=== PATIENT | female | born 1995 | race Caucasian/White ===

== ENCOUNTER 2017-12-26 14:58 | Emergency (ER) | payer OTHER ==
[2015-02-05 12:58] VITALS: Ht 180.3 cm; Wt 63.5 kg
[~2017-12-26] VITALS: Ht 180.3 cm; Wt 63.5 kg
[~2017-12-26 14:58] MED LIST: ACET-1718 PO; ACET-3017 PO; ACET500T68 PO; ALBU8.5H12 IH; ALBUDR INH; BCP; BIRTH CONTROL; CIPR-344; CYCL10TA29 PO; FERR-103 PO; HYDR-317 PO; HYDR-385 PO; HYDR-4309 PO; IBU600 PO; IBUP600T22 PO; IBUP800T37 PO; LOR5 PO; LOR5/325 PO; MULT-1335 PO; NAPR500T75 PO; NAPR550T20 PO; NORE-74 PO; NORG-1; ONDA-2 PO; PHEN97.511 PO; SULF-198 PO; TRAM-420 PO; [UNRECOGNIZED DRUG - CODE] PO; [UNRECOGNIZED DRUG - REMARK]; omnicef
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
[2017-12-26] MEDS ORDERED: ACETAMINOPHEN 500 MG TAB PO ONE (15:25)
--- NOTE | 2017-12-26 15:58 | RADIOLOGY IMAGING REPORT ---
FACILITY: PATIENT NAME: Shalini Gandara : 1995 MR: [id number] V: [id number] EXAM DATE: ORDERING PHYSICIAN: KYMBERLY FRANZ TECHNOLOGIST: Location: [facility] Patient: Shalini Gandara : 1995 Visit/Account:[id number] Date of Sevice: 12/26/2017 Exam type: 2 views right shoulder History: shoulder pain, limited ROM Comparison: 09/11/2017. Findings: There is no acute fracture or dislocation of the right shoulder. Y-view is slightly overrotated. AC joint aligns appropriately. Acromion down slopes slightly. Right lung apex is unremarkable. IMPRESSION: 1. No acute fracture or dislocation of the right shoulder. Report Dictated By: Terrell Mcqueen MD at 12/26/2017 3:53 PM Report E-Signed By: Terrell Mcqueen MD at 12/26/2017 3:54 PM WSN:[email or web address]
[2017-12-26 16:30] VITALS: BP 96/57
== END 2017-12-26 16:28 | disposition home or self-care (01) ==
LOC: ER 15:15
DX: M25.511 Pain in right shoulder (principal)
CPT/HCPCS: 99283

== ENCOUNTER 2018-03-05 15:19 | Emergency (ER) | payer SELFPAY ==
[2015-02-05 12:58] VITALS: Wt 65.8 kg
[2018-03-05 15:30] VITALS: BP 121/88
--- NOTE | 2018-03-05 15:45 | ER Report ---
History and Physical Time Seen By MD: 15:45 Hx. of Stated Complaint: patient states she dislocated her knee; pain is 8.5 HPI/ROS CHIEF COMPLAINT: Knee trauma HISTORY OF PRESENT ILLNESS: 22-year-old female with a history of knee problems presents today after she hit her right knee against a wall at work at about 10: 15 this morning. She states it felt like her knee was dislocated and then self reduced. She denies any weakness or numbness distal to her knee. She has pain with weightbearing. Allergies: Coded Allergies: lactose (Verified Allergy, Intermediate, MIGRAINES, 03/05/18) Uncoded Allergies: HAYFEVER (Allergy, Mild, SINUS CONGESTION, 09/01/17) Home Meds Reported Medications Multivitamin With Minerals (MULTIPLE VITAMIN) 1 Each Tablet, 1 EACH PO DAILY, TAB 09/01/17 Tramadol Hcl (TRAMADOL HCL) 50 Mg Tablet, 50 MG PO Q8H Y for PAIN, TAB 09/01/17 Discontinued Reported Medications Acetaminophen (TYLENOL EXTRA STRENGTH) 500 Mg Tablet, 1000 MG PO DAILY Y for PAIN/HEADACHE, TAB 09/01/17 Hx Smoking: No Smoking Status: Never Smoker Exposure to Second Hand Smoke?: No Hx Substance Use Disorder: No Hx Alcohol Use: Yes Constitutional Vital Sign - Last 24 Hours 03/05/18 15:30 Temp 98.3 Pulse 81 Resp 19 B/P (MAP) 121/88 Pulse Ox 97 O2 Delivery Room Air Physical Exam General appearance: [Alert no distress.] Right knee: There is no significant swelling. There is no effusion. There is no obvious deformity of the knee. There is moderate tenderness to the patella and medial joint line. The joint is stable with no comparable ligamentous laxity to the knee. There is no tenderness proximal or distal to the knee. Neurologic exam: The patient has normal sensation distal to the injury. Vascular exam: Normal pulses and capillary refill in the foot DIFFERENTIAL DIAGNOSIS: After history and physical exam differential diagnosis was considered for knee injury including sprain, fracture, meniscus injury and soft tissue injury. Medical Decision Making EKG/Imaging Imaging X-ray: location right knee was obtained. I viewed the images myself on the PACS system. My interpretation of the images is: Normal. The radiologist interpretation had no clinically significant variation from this interpretation. ED Course/Re-evaluation ED Course Physical exam is consistent with contusion or MCL strain. X-ray shows no acute osseous injury. She was placed in knee immobilizer and given crutches. She was referred to orthopedic surgery for further evaluation. Decision to Disposition Date: Mar 05, 2018 Decision to Disposition Time: 16:07 Depart Departure Latest Vital Signs Vital Signs Date Time Temp Pulse Resp B/P (MAP) Pulse Ox O2 Delivery O2 Flow Rate FiO2 03/05/18 15:30 98.3 81 19 121/88 97 Room Air Impression: Primary Impression: Knee MCL sprain Additional Impression: Contusion Condition: Improved Disposition: HOME OR SELF-CARE Referrals: LISA CARTAGENA MD Patient Instructions: Crutch Instructions (ED), Knee Immobilizer (ED), Knee Sprain (ED) Problem Qualifiers Primary Impression: Knee MCL sprain Encounter type: initial encounter Laterality: right Qualified Codes: S83.411A - Sprain of medial collateral ligament of right knee, initial encounter Additional Impression: Contusion Encounter type: initial encounter Contusion area: knee Laterality: right Qualified Codes: S80.01XA - Contusion of right knee, initial encounter LOGAN RIVERS MD Mar 05, 2018 15:45
--- NOTE | 2018-03-05 16:14 | RADIOLOGY IMAGING REPORT ---
FACILITY: [facility] [place] PATIENT NAME: Shalini Gandara : 1995 MR: [id number] V: [id number] EXAM DATE: ORDERING PHYSICIAN: LOGAN RIVERS TECHNOLOGIST: Location: [facility] [place] Patient: Shalini Gandara : 1995 Visit/Account:[id number] Date of Sevice: 03/05/2018 EXAMINATION: Right knee 3 views HISTORY: Knee trauma. Pain. COMPARISON: 01/14/2014. FINDINGS: Bones of the right knee demonstrate normal alignment. No evidence of fracture or dislocation. Joint s paces are preserved. Soft tissues are radiographically unremarkable. No significant knee joint effusi on is evident. IMPRESSION: Negative right knee. Report Dictated By: Deshawn Hayes MD at 03/05/2018 4:09 PM Report E-Signed By: Deshawn Hayes MD at 03/05/2018 4:10 PM WSN:[id number]
== END 2018-03-05 16:27 | disposition home or self-care (01) ==
LOC: ER 15:36
DX: S83.411A Sprain of medial collateral ligament of right knee, initial encounter (principal); S80.01XA Contusion of right knee, initial encounter
CPT/HCPCS: 73562; 99282; L1830

== ENCOUNTER 2018-04-12 21:21 | Emergency (ER) | payer SELFPAY ==
[2015-02-05 12:58] VITALS: Wt 65.8 kg
[2018-04-12] MEDS ORDERED: ONDANSETRON 4 MG/2 ML VIAL IVP ONE (22:00)
[2018-04-12] MEDS ORDERED: MORPHINE 4 MG/ML SDV IVP ONE ×2 (22:00→22:50)
[2018-04-12] MEDS ORDERED: NS(*) 0.9% 1000 ML BAG 1,000 ML IV ONE (22:00)
--- NOTE | 2018-04-12 22:01 | ER Report ---
History and Physical Time Seen By MD: 21:51 Hx. of Stated Complaint: pt c/o abdominal pain all day, with n/v/d HPI/ROS CHIEF COMPLAINT: Abdominal pain HISTORY OF PRESENT ILLNESS: This is a 22 year old female. She has been having abdominal pain since she awoke this morning. She was feeling okay yesterday. She says that the pain worsens when she eats anything. She has associated nausea and vomiting. The worst pain is high up on the right abdomen. She has no thermometer, but has felt hot. She has had some loose bowels. Denies dysuria. Has has endometriosis and just finished her menses about a week ago and did not have much pain with that. She has had two laparoscopies in the past due to her endometriosis. REVIEW OF SYSTEMS: Constitutional: As above. Cardiovascular: No chest pain. Respiratory: No shortness of breath. Gastrointestinal: As above. Genitourinary: As above. Musculoskeletal: No back pain. No extremity pain. Skin: No rashes. Allergies: Coded Allergies: lactose (Verified Allergy, Intermediate, MIGRAINES, 04/12/18) Uncoded Allergies: HAYFEVER (Allergy, Mild, SINUS CONGESTION, 09/01/17) Home Meds Active Scripts Ondansetron (ZOFRAN ODT) 4 Mg Tab.rapdis, 4 MG PO Q6H Y for NAUSEA/VOMITING, # 20 TAB.JAY 0 Refills Prov:CAIO BOLAND MD 04/12/18 Hydrocodone Bit/Acetaminophen (HYDROCODON-ACETAMINOPHEN 5-325) 1 Each Tablet, 1 EACH PO Q4H Y for PAIN, #8 TAB 0 Refills Prov:CAIO BOLAND MD 04/12/18 Reported Medications Multivitamin With Minerals (MULTIPLE VITAMIN) 1 Each Tablet, 1 EACH PO DAILY, TAB 09/01/17 Discontinued Reported Medications Tramadol Hcl (TRAMADOL HCL) 50 Mg Tablet, 50 MG PO Q8H Y for PAIN, TAB 09/01/17 Reviewed Nurses Notes: Yes Hx Smoking: No Smoking Status: Never Smoker Exposure to Second Hand Smoke?: No Hx Substance Use Disorder: No Hx Alcohol Use: Yes (couple weekly) Constitutional Vital Sign - Last 24 Hours 04/12/18 04/12/18 04/12/18 04/12/18 21:25 21:30 21:45 22:00 Temp 98.3 Pulse 92 88 80 75 Resp 16 B/P (MAP) 111/75 113/77 (89) 92/64 (73) Pulse Ox 97 99 99 99 O2 Delivery Room Air 04/12/18 04/12/18 04/12/18 04/12/18 22:15 22:35 22:45 22:45 Pulse 76 74 74 B/P (MAP) 103/79 (87) Pulse Ox 94 96 96 04/12/18 04/12/18 04/12/18 04/12/18 23:00 23:00 23:30 23:30 B/P (MAP) 110/81 (91) 110/81 (91) 107/74 (85) 107/74 (85) 04/12/18 23:45 Pulse 78 Pulse Ox 91 Physical Exam General Appearance: The patient is alert. No acute distress. Eyes: Pupils are equal, round. No pallor, injection or icterus. ENT: Mucous membranes are moist. Normal oral mucosa. Posterior oropharynx is normal. Neck: Supple and non tender. Respiratory: Lungs are clear to auscultation. Cardiovascular: Regular rate and rhythm. No murmurs, gallops or rubs. Gastrointestinal: Abdomen is soft, tender on the right side, seems worse on the right upper quadrant with positive Leigh's sign. Nondistended. No costovertebral angle tenderness. No rebound or guarding. Normal active bowel sounds. Neurological: Alert and oriented x3. Skin: No rashes. Musculoskeletal: No tenderness in palpation of the thoracic and lumbar spine. DIFFERENTIAL DIAGNOSIS: After history and physical exam, differential diagnosis was considered for abdominal pain including but not limited to appendicitis, cholecystitis and urinary tract infection. Medical Decision Making Data Points Result Diagram: 04/12/18213404/12/182134 Laboratory Hematology Test 04/12/18 21:25 04/12/18 21:35 Urine Color Yellow Urine Clarity Clear Urine pH 5.0 pH (4.8-9.5) Urine Specific [place] 1.024 Urine Protein Negative mg/dL (NEGATIVE) Urine Glucose (UA) Negative mg/dL (NEGATIVE) Urine Ketones Negative mg/dL (NEGATIVE) Urine Blood Moderate (NEGATIVE) Urine Nitrite Negative (NEGATIVE) Urine Bilirubin Negative (NEGATIVE) Urine Urobilinogen Negative mg/dL (0.2-1.9) Urine Leukocyte Esterase Negative (NEGATIVE) Urine RBC 3 /HPF (0-2/HPF) Urine WBC 2 /HPF (0-5/HPF) Urine Squamous Epithelial Cells Many /LPF (</=FEW) Urine Bacteria Few /HPF (NONE-FEW) Urine Hyaline Casts Few /LPF (NONE-FEW) Urine Mucus Few /HPF (NONE-FEW) Red Blood Count 4.58 M/uL (4.17-5.56) Mean Corpuscular Volume 86.5 fL (80.0-96.0) Mean Corpuscular Hemoglobin 29.0 pg (26.0-33.0) Mean Corpuscular Hemoglobin Concent 33.6 g/dL (32.0-36.0) Red Cell Distribution Width 14.6 % (11.5-14.5) Mean Platelet Volume 8.2 fL (7.2-11.1) Neutrophils (%) (Auto) 69.1 % (39.4-72.5) Lymphocytes (%) (Auto) 24.1 % (17.6-49.6) Monocytes (%) (Auto) 5.9 % (4.1-12.4) Eosinophils (%) (Auto) 0.5 % (0.4-6.7) Basophils (%) (Auto) 0.4 % (0.3-1.4) Nucleated RBC Relative Count (auto) 0.0 /100WBC Neutrophils # (Auto) 8.0 K/uL (2.0-7.4) Lymphocytes # (Auto) 2.8 K/uL (1.3-3.6) Monocytes # (Auto) 0.7 K/uL (0.3-1.0) Eosinophils # (Auto) 0.1 K/uL (0.0-0.5) Basophils # (Auto) 0.0 K/uL (0.0-0.1) Nucleated RBC Absolute Count (auto) 0.00 K/uL Sodium Level 141 mmol/L (137-145) Potassium Level 3.5 mmol/L (3.5-5.0) Chloride Level 102 mmol/L (98-107) Carbon Dioxide Level 25 mmol/L (22-31) Blood Urea Nitrogen 18 mg/dl (7-18) Creatinine 0.80 mg/dl (0.52-1.04) Glomerular Filtration Rate Calc > 60.0 Random Glucose 88 mg/dl (75-110) Calcium Level 9.4 mg/dl (8.4-10.2) Total Bilirubin 0.6 mg/dl (0.2-1.3) Aspartate Amino Transf (AST/SGOT) 29 U/L (0-35) Alanine Aminotransferase (ALT/SGPT) 29 U/L (0-56) Alkaline Phosphatase 75 U/L (0-126) C-Reactive Protein 0.7 mg/dl (<1.0) Total Protein 7.5 gm/dl (6.3-8.2) Albumin 4.3 g/dl (3.5-5.0) Amylase Level 109 U/L (0-110) Lipase 53 U/L (23-300) Human Chorionic Gonadotropin, Qual Negative (NEGATIVE) Chemistry Test 04/12/18 21:25 04/12/18 21:35 Urine Color Yellow Urine Clarity Clear Urine pH 5.0 pH (4.8-9.5) Urine Specific [place] 1.024 Urine Protein Negative mg/dL (NEGATIVE) Urine Glucose (UA) Negative mg/dL (NEGATIVE) Urine Ketones Negative mg/dL (NEGATIVE) Urine Blood Moderate (NEGATIVE) Urine Nitrite Negative (NEGATIVE) Urine Bilirubin Negative (NEGATIVE) Urine Urobilinogen Negative mg/dL (0.2-1.9) Urine Leukocyte Esterase Negative (NEGATIVE) Urine RBC 3 /HPF (0-2/HPF) Urine WBC 2 /HPF (0-5/HPF) Urine Squamous Epithelial Cells Many /LPF (</=FEW) Urine Bacteria Few /HPF (NONE-FEW) Urine Hyaline Casts Few /LPF (NONE-FEW) Urine Mucus Few /HPF (NONE-FEW) White Blood Count 11.6 k/uL (4.5-11.0) Red Blood Count 4.58 M/uL (4.17-5.56) Hemoglobin 13.3 g/dL (12.0-16.0) Hematocrit 39.6 % (34.0-47.0) Mean Corpuscular Volume 86.5 fL (80.0-96.0) Mean Corpuscular Hemoglobin 29.0 pg (26.0-33.0) Mean Corpuscular Hemoglobin Concent 33.6 g/dL (32.0-36.0) Red Cell Distribution Width 14.6 % (11.5-14.5) Platelet Count 275 K/uL (150-450) Mean Platelet Volume 8.2 fL (7.2-11.1) Neutrophils (%) (Auto) 69.1 % (39.4-72.5) Lymphocytes (%) (Auto) 24.1 % (17.6-49.6) Monocytes (%) (Auto) 5.9 % (4.1-12.4) Eosinophils (%) (Auto) 0.5 % (0.4-6.7) Basophils (%) (Auto) 0.4 % (0.3-1.4) Nucleated RBC Relative Count (auto) 0.0 /100WBC Neutrophils # (Auto) 8.0 K/uL (2.0-7.4) Lymphocytes # (Auto) 2.8 K/uL (1.3-3.6) Monocytes # (Auto) 0.7 K/uL (0.3-1.0) Eosinophils # (Auto) 0.1 K/uL (0.0-0.5) Basophils # (Auto) 0.0 K/uL (0.0-0.1) Nucleated RBC Absolute Count (auto) 0.00 K/uL Glomerular Filtration Rate Calc > 60.0 Calcium Level 9.4 mg/dl (8.4-10.2) Total Bilirubin 0.6 mg/dl (0.2-1.3) Aspartate Amino Transf (AST/SGOT) 29 U/L (0-35) Alanine Aminotransferase (ALT/SGPT) 29 U/L (0-56) Alkaline Phosphatase 75 U/L (0-126) C-Reactive Protein 0.7 mg/dl (<1.0) Total Protein 7.5 gm/dl (6.3-8.2) Albumin 4.3 g/dl (3.5-5.0) Amylase Level 109 U/L (0-110) Lipase 53 U/L (23-300) Human Chorionic Gonadotropin, Qual Negative (NEGATIVE) Urinalysis Test 04/12/18 21:25 Urine Color Yellow Urine Clarity Clear Urine pH 5.0 pH (4.8-9.5) Urine Specific [place] 1.024 Urine Protein Negative mg/dL (NEGATIVE) Urine Glucose (UA) Negative mg/dL (NEGATIVE) Urine Ketones Negative mg/dL (NEGATIVE) Urine Blood Moderate (NEGATIVE) Urine Nitrite Negative (NEGATIVE) Urine Bilirubin Negative (NEGATIVE) Urine Urobilinogen Negative mg/dL (0.2-1.9) Urine Leukocyte Esterase Negative (NEGATIVE) Urine RBC 3 /HPF (0-2/HPF) Urine WBC 2 /HPF (0-5/HPF) Urine Squamous Epithelial Cells Many /LPF (</=FEW) Urine Bacteria Few /HPF (NONE-FEW) Urine Hyaline Casts Few /LPF (NONE-FEW) Urine Mucus Few /HPF (NONE-FEW) EKG/Imaging Imaging EXAMINATION: CT abdomen with IV contrast CT pelvis with IV contrast HISTORY: Abdominal pain. TECHNIQUE: Spiral scan was through the abdomen and pelvis during injection of nonionic iodinated intravenous contrast. Sagittal and coronal reformatted images are also submitted. One of the following dose optimization techniques was utilized in the performance of this exam: Automated exposure control; adjustment of the mA and/ or kV according to the patient's size; or use of an iterative reconstruction technique. Specific details can be referenced in the facility's radiology CT exam operational policy. CONTRAST: 75 mL of IV [id number] COMPARISON: None available. FINDINGS: Lower chest: Mild nonspecific fluid in the inferior aspect of the pericardium. Liver / biliary: Negative. Pancreas: Negative. Spleen: Negative. Adrenal glands: Negative. Kidneys: Negative. Pelvic structures: Negative. Bowel: Normal appendix. No obstruction or bowel wall thickening. Peritoneum / retroperitoneum / mesenteries: Mild free fluid in the pelvis. No free air. Vessels: Negative. Lymph nodes: Negative. Musculoskeletal / Body wall: Negative. IMPRESSION: 1. Mild free fluid in the pelvis, possibly physiologic. 2. Otherwise no acute abnormality in the abdomen or pelvis. 3. Mild nonspecific fluid in the inferior aspect of the pericardium. Report Dictated By: Jose Alberto Jimenez MD at 04/12/2018 11:17 PM Focused right upper quadrant ultrasound HISTORY: right abdominal pain COMPARISON: Abdomen and pelvis CT from same date. Findings: Standard right upper quadrant abdominal ultrasound is performed. Pancreas: Visualized portions of the pancreas are unremarkable. Liver: Negative. Gallbladder and biliary system: No gallbladder stone or sludge. No gallbladder wall thickening or pericholecystic fluid. The common bile duct is not dilated. Positive sonographic Leigh's sign. Aorta and IVC: The visualized aorta and IVC are patent. Kidneys: The right kidney measures 10.6 x 4.2 x 5.2 cm. No hydronephrosis. Ascites: None. IMPRESSION: Positive sonographic Leigh's sign. Otherwise normal right upper quadrant ultrasound. Report Dictated By: Jose Alberto Jimenez MD at 04/12/2018 11:26 PM ED Course/Re-evaluation Clinical Indication for ER IV: Hydration, IV Access ED Course The patient was evaluated, and labs including urine and blood work were obtained. Based on location of pain on the right side, a CT scan of the abdomen and pelvis with contrast was ordered as well as an ultrasound of the gallbladder. An initial dose of morphine 4 mg IV was given along with Zofran 4 mg IV. A repeat dose of pain medicine was given during the time of the ultrasound. Labs were unremarkable. CT scan and gallbladder also were unremarkable. Based on location of pain, I still think the most likely cause of pain will be gallbladder related and I would like her to follow up with general surgery as an outpatient. Decision to Disposition Date: April 12, 2018 Decision to Disposition Time: 23:53 Depart Departure Latest Vital Signs Vital Signs Date Time Temp Pulse Resp B/P (MAP) Pulse Ox O2 Delivery O2 Flow Rate FiO2 04/12/18 23:45 78 91 04/12/18 23:30 107/74 (85) 04/12/18 21:25 98.3 16 Room Air Impression: Primary Impression: Abdominal pain, right upper quadrant Condition: Improved Disposition: HOME OR SELF-CARE Referrals: ANASTASIYA COTTRELL MD New Scripts Ondansetron (ZOFRAN ODT) 4 Mg Tab.rapdis 4 MG PO Q6H Y for NAUSEA/VOMITING, #20 TAB.JAY 0 Refills Prov: CAIO BOLAND MD 04/12/18 Hydrocodone Bit/Acetaminophen (HYDROCODON-ACETAMINOPHEN 5-325) 1 Each Tablet 1 EACH PO Q4H Y for PAIN, #8 TAB 0 Refills Prov: CAIO BOLAND MD 04/12/18 Patient Instructions: Acute Abdominal Pain (ED) Additional Instructions: Follow-up with Dr. Cottrell as an outpatient for further evaluation. Take Ibuprofen 200mg over the counter tablets, take 4 tablet every 8 hours with food as needed for pain. Take Lortab 5/325, one every 4 hours as needed for severe pain. Take Zofran 4mg, one every 6 hours as needed for nausea. CAIO BOLAND MD April 12, 2018 22:01
[2018-04-12 22:09] LABS: PLATELET COUNT, AUTOMATED 275 K/uL (150-450)
[2018-04-12] MEDS ORDERED: IOPAMIDOL 76% 75 ML INFUS BTL 75 ML ONE (22:13)
[2018-04-12 23:30] VITALS: BP 107/74
--- NOTE | 2018-04-12 23:32 | RADIOLOGY IMAGING REPORT ---
FACILITY: [facility] PATIENT NAME: Shalini Gandara : 1995 MR: [id number] V: [id number] EXAM DATE: ORDERING PHYSICIAN: CAIO BOLAND TECHNOLOGIST: Location: [facility] [place] Patient: Shalini Gandara : 1995 Visit/Account:[id number] Date of Sevice: 04/12/2018 Focused right upper quadrant ultrasound HISTORY: right abdominal pain COMPARISON: Abdomen and pelvis CT from same date. Findings: Standard right upper quadrant abdominal ultrasound is performed. Pancreas: Visualized portions of the pancreas are unremarkable. Liver: Negative. Gallbladder and biliary system: No gallbladder stone or sludge. No gallbladder wall thickening or per icholecystic fluid. The common bile duct is not dilated. Positive sonographic Leigh's sign. Aorta and IVC: The visualized aorta and IVC are patent. Kidneys: The right kidney measures 10.6 x 4.2 x 5.2 cm. No hydronephrosis. Ascites: None. IMPRESSION: Positive sonographic Leigh's sign. Otherwise normal right upper quadrant ultrasound. Report Dictated By: Jose Alberto Jimenez MD at 04/12/2018 11:26 PM Report E-Signed By: Jsoe Alberto Jimenez MD at 04/12/2018 11:28 PM WSN:[id number]
--- NOTE | 2018-04-12 23:34 | RADIOLOGY IMAGING REPORT ---
[place] [facility] [place] NAME: Shalini Gandara : 1995 MR: [id number] V: [id number] EXAM DATE: ORDERING PHYSICIAN: CAIO BOLAND TECHNOLOGIST: Location: [facility] Patient: Shalini Gandara : 1995 Visit/Account:[id number] Date of Sevice: 04/12/2018 EXAMINATION: CT abdomen with IV contrast CT pelvis with IV contrast HISTORY: Abdominal pain. TECHNIQUE: Spiral scan was through the abdomen and pelvis during injection of nonionic iodinated in travenous contrast. Sagittal and coronal reformatted images are also submitted. One of the following dose optimization techniques was utilized in the performance of this exam: Autom ated exposure control; adjustment of the mA and/or kV according to the patient's size; or use of an i terative reconstruction technique. Specific details can be referenced in the facility's radiology C T exam operational policy. CONTRAST: 75 mL of IV Isovue-370 COMPARISON: None available. FINDINGS: Lower chest: Mild nonspecific fluid in the inferior aspect of the pericardium. Liver / biliary: Negative. Pancreas: Negative. Spleen: Negative. Adrenal glands: Negative. Kidneys: Negative. Pelvic structures: Negative. Bowel: Normal appendix. No obstruction or bowel wall thickening. Peritoneum / retroperitoneum / mesenteries: Mild free fluid in the pelvis. No free air. Vessels: Negative. Lymph nodes: Negative. Musculoskeletal / Body wall: Negative. IMPRESSION: 1. Mild free fluid in the pelvis, possibly physiologic. 2. Otherwise no acute abnormality in the abdomen or pelvis. 3. Mild nonspecific fluid in the inferior aspect of the pericardium. Report Dictated By: Jose Alberto Jimenez MD at 04/12/2018 11:17 PM Report E-Signed By: Jose Alberto Jimenez MD at 04/12/2018 11:30 PM [id number]
[2018-04-12] MEDS ORDERED: ACET/HYDROC 5/325MG TH ER ONLY 2 TAB/BOTTLE PO ONE (23:55)
[2018-04-12] MEDS ORDERED: ONDANSETRON 4 MG ODT TH SL ONE (23:55)
[2018-04-12] MEDS ORDERED: LOR5/325 PO (23:56)
[2018-04-12] MEDS ORDERED: ONDA4TAB PO (23:56)
== END 2018-04-13 00:04 | disposition home or self-care (01) ==
LOC: ER 21:39
DX: R10.11 Right upper quadrant pain (principal)
CPT/HCPCS: 74177; 76705; 81001; 82150; 83690; 84703; 85025; 86140; 96361; 96374; 96375; 99284; J2270; J2405; J7030; Q9967; S0119; 82040; 82247; 82310; 82374; 82435; 82565; 82947; 84075; 84132; 84155; 84295; 84450; 84460; 84520

== ENCOUNTER 2018-06-06 22:03 | Emergency (ER) | payer SELFPAY ==
[2015-02-05 12:58] VITALS: Wt 65.8 kg
[~2018-06-06 22:03] MED LIST changes: +ONDA4TAB PO
[2018-06-06] MEDS ORDERED: KETOROLAC 60 MG/2 ML VIAL IM ONE (22:30)
--- NOTE | 2018-06-06 22:42 | ER Report ---
History and Physical Time Seen By MD: 22:41 Hx. of Stated Complaint: right knee pain HPI/ROS CHIEF COMPLAINT: Right knee pain HISTORY OF PRESENT ILLNESS: Patient is a 23-year-old female here with complaints of right knee pain. She reportedly injured her knee at work approximately 2 months ago. Patient reports worsening pain over the past 3 days with sensation of right knee heaviness, proximal and distal edema. There is no laxity of the joint and her neurovascular exam is intact at time of evaluation. Denies other injuries at this time. REVIEW OF SYSTEMS: Constitutional: No fever, no chills. Eyes: No discharge. ENT: No sore throat. Cardiovascular: No chest pain, no palpitations. Respiratory: No cough, no shortness of breath. Gastrointestinal: No abdominal pain, no vomiting. Genitourinary: No hematuria. Musculoskeletal: + Right knee pain with range of motion, Skin: No rashes. Neurological: Neurovascular exam is intact distal to the injury site. Allergies: Coded Allergies: lactose (Verified Allergy, Intermediate, MIGRAINES, 06/06/18) Uncoded Allergies: HAYFEVER (Allergy, Mild, SINUS CONGESTION, 09/01/17) Home Meds Active Scripts Tramadol Hcl (TRAMADOL HCL) 50 Mg Tablet, 50 MG PO Q6H Y for PAIN, #6 TAB 0 Refills Prov:ARNAV BENITES DO 06/06/18 Reported Medications Multivitamin With Minerals (MULTIPLE VITAMIN) 1 Each Tablet, 1 EACH PO DAILY, TAB 09/01/17 Discontinued Scripts Ondansetron (ZOFRAN ODT) 4 Mg Tab.rapdis, 4 MG PO Q6H Y for NAUSEA/VOMITING, # 20 TAB.JAY 0 Refills Prov:CAIO BOLAND MD 04/12/18 Hydrocodone Bit/Acetaminophen (HYDROCODON-ACETAMINOPHEN 5-325) 1 Each Tablet, 1 EACH PO Q4H Y for PAIN, #8 TAB 0 Refills Prov:CAIO BOLAND MD 04/12/18 Hx Smoking: No Smoking Status: Never Smoker Exposure to Second Hand Smoke?: No Hx Substance Use Disorder: No Hx Alcohol Use: Yes (couple weekly) Constitutional Vital Sign - Last 24 Hours 06/06/18 06/06/18 06/06/18 06/06/18 22:12 22:14 22:18 22:23 Temp 97.8 Pulse 81 71 76 Resp 12 B/P (MAP) 124/89 (101) 124/89 Pulse Ox 98 98 O2 Delivery Room Air Room Air 06/06/18 06/06/18 06/06/18 06/06/18 22:30 22:38 22:53 23:00 Pulse 66 62 B/P (MAP) 107/72 (84) 118/84 (95) Pulse Ox 96 98 06/06/18 06/06/18 06/06/18 06/06/18 23:08 23:23 23:30 23:38 Pulse 63 56 57 B/P (MAP) 110/74 (86) Pulse Ox 94 94 94 06/06/18 23:43 Pulse 56 Pulse Ox 94 Physical Exam General Appearance: The patient is alert, has no immediate need for airway protection and no signs of toxicity. Eyes: Pupils equal and round no pallor or injection. Neurological: Neurovascular exam intact distal to the injury site Skin: Warm and dry, no rashes. Musculoskeletal: Neck is supple non tender. + Tenderness on range of motion of the right knee with mild proximal and distal edema DIFFERENTIAL DIAGNOSIS: After history and physical exam differential diagnosis was considered for sprain, contusion, fracture, ligamentous tear Medical Decision Making EKG/Imaging Imaging RIGHT KNEE: Indication: Pain and swelling. Technique: 3 views of the knee were obtained. Comparison: 03/05/2018 Findings: There is no evidence of fracture, dislocation, or other acute deformity. There is normal mineralization of the skeletal structures. There is no evidence of joint space narrowing or osteophyte formation. The periarticular soft tissues appear unremarkable. IMPRESSION: Negative right knee. No significant change. ED Course/Re-evaluation ED Course Patient is a 23-year-old female here with complaints of worsening knee pain of her right knee for the past 3 days. Neurovascular exam is intact. The joint is stable without ligamentous laxity. Patient was given Toradol and ice was applied with moderate relief of symptoms. X-ray showed no acute fractures or dislocations. Patient was advised to follow-up with orthopedics in 1 week. Decision to Disposition Date: Jun 06, 2018 Decision to Disposition Time: 23:55 Depart Departure Latest Vital Signs Vital Signs Date Time Temp Pulse Resp B/P (MAP) Pulse Ox O2 Delivery O2 Flow Rate FiO2 06/06/18 23:43 56 94 06/06/18 23:30 110/74 (86) 06/06/18 22:18 Room Air 06/06/18 22:14 97.8 12 Impression: Primary Impression: Knee pain Condition: Improved Disposition: HOME OR SELF-CARE New Scripts Tramadol Hcl (TRAMADOL HCL) 50 Mg Tablet 50 MG PO Q6H Y for PAIN, #6 TAB 0 Refills Prov: ARNAV BENITES DO 06/06/18 Patient Instructions: Knee Pain (ED) Additional Instructions: You may take 1 tablet of tramadol every 8 hours as needed for breakthrough pain. He may take naproxen 500 mg [id number] every 12 hours for pain. Please follow-up with an orthopedic doctor in one week for further evaluation of her injury. Please rest, ice, elevate the extremity. Please return promptly if you develop worsening pain, numbness or tingling. ARNAV BENITES DO Jun 06, 2018 22:42
[2018-06-06] MEDS ORDERED: TRAM-420 PO (23:22)
[2018-06-06 23:30] VITALS: BP 110/74
--- NOTE | 2018-06-06 23:45 | RADIOLOGY IMAGING REPORT ---
FACILITY: [facility] PATIENT NAME: Shalini Gandara : 1995 MR: [id number] V: [id number] EXAM DATE: ORDERING PHYSICIAN: ARNAV BENITES TECHNOLOGIST: Location: [facility] Patient: Shalini Gandara : 1995 Visit/Account:[id number] Date of Sevice: 06/06/2018 RIGHT KNEE: Indication: Pain and swelling. Technique: 3 views of the knee were obtained. Comparison: 03/05/2018 Findings: There is no evidence of fracture, dislocation, or other acute deformity. There is normal mi neralization of the skeletal structures. There is no evidence of joint space narrowing or osteophyte formation. The periarticular soft tissues appear unremarkable. IMPRESSION: Negative right knee. No significant change. Report Dictated By: Toby Burch MD at 06/06/2018 11:22 PM Report E-Signed By: Toby Burch MD at 06/06/2018 11:41 PM WSN:[id number]
== END 2018-06-06 23:56 | disposition home or self-care (01) ==
LOC: ER 22:20
DX: M25.561 Pain in right knee (principal)
CPT/HCPCS: 73562; 96372; 99283; J1885

== ENCOUNTER 2018-10-07 11:06 | Emergency (ER) | payer SELFPAY ==
[2015-02-05 12:58] VITALS: Wt 68.0 kg
[~2018-10-07 11:06] MED LIST changes: -HYDR-4309 PO; +HYDR-653 PO
[2018-10-07 11:15] VITALS: BP 118/74
[2018-10-07] MEDS ORDERED: HYDR-385 PO (11:33)
[2018-10-07] MEDS ORDERED: PRED20TA6 PO (11:33)
--- NOTE | 2018-10-07 11:34 | ER Report ---
History and Physical Time Seen By MD: 11:29 Hx. of Stated Complaint: right shoulder pain HPI/ROS CHIEF COMPLAINT: Acute on chronic right shoulder pain HISTORY OF PRESENT ILLNESS: Patient is a 23-year-old female who is right hand dominant presents to the emergency department with severe posterior shoulder pain. Patient states that she used to work here at [employer] and had a piece of heavy equipment fall onto her shoulder. This ultimately resulted in the development of an impingement type syndrome there is no fracture. She had tried both physical therapy as well as cortisol injections at that time which only provided minimal relief of symptoms. She ultimately underwent surgery under Dr. Yury Guaman improvement of the impingement syndrome and range of motion. He shouldn't denies any recent trauma although she does state that she was reaching for an object approximately 1-2 weeks ago and felt a pop in her shoulder. Since that time she feels that the impingement symptoms have returned. She denies any numbness or tingling or weakness into the hand or fingers. Allergies: Coded Allergies: lactose (Verified Allergy, Intermediate, MIGRAINES, 10/07/18) Uncoded Allergies: HAYFEVER (Allergy, Mild, SINUS CONGESTION, 09/01/17) Home Meds Active Scripts Prednisone (PREDNISONE) 20 Mg Tablet, 20 MG PO QDAY for 5 Days, #5 TAB 0 Refills Prov:ARACELI SOUTH MD 10/07/18 Hydrocodone Bit/Acetaminophen (HYDROCODON-ACETAMINOPHEN 5-325) 1 Each Tablet, 1 EACH PO Q4H for PAIN, #15 TAB 0 Refills Prov:ARACELI SOUTH MD 10/07/18 Reported Medications Multivitamin With Minerals (MULTIPLE VITAMIN) 1 Each Tablet, 1 EACH PO DAILY, TAB 09/01/17 Discontinued Scripts Tramadol Hcl (TRAMADOL HCL) 50 Mg Tablet, 50 MG PO Q6H PRN for PAIN, #6 TAB 0 Refills Prov:ARNAV BENITES DO 06/06/18 Past Medical/Surgical History Right shoulder pain Hx Smoking: No Smoking Status: Never Smoker Exposure to Second Hand Smoke?: No Hx Substance Use Disorder: No Hx Alcohol Use: Yes (couple weekly) Constitutional Vital Sign - Last 24 Hours 10/07/18 11:15 Temp 98.4 Pulse 76 Resp 11 B/P (MAP) 118/74 Pulse Ox 99 O2 Delivery Room Air Physical Exam General appearance: Alert no distress. Respiratory: Chest is non tender, lungs are clear to auscultation. Cardiac: Regular rate and rhythm [ ] Examination of the right shoulder reveals normal contour there is no erythema or rash or swelling. No obvious deformities noted. Patient has pain and decreased range of motion at approximate 45 of shoulder abduction. She reports pain to palpation along the posterior aspect of that shoulder. No numbness or tingling over the deltoid area. Examination of the Right hand reveals no acute deformity. The patient is able to give a thumbs up sign, is able to make an okay sign, and is able to AB duct the fingers. Sensation is intact over the dorsal 1st web space, the volar aspect of the 2nd finger, and the volar aspect of the 5th finger. Capillary refill is brisk. [DIFFERENTIAL DIAGNOSIS: After history and physical exam differential diagnosis was considered for] [ ] Medical Decision Making ED Course/Re-evaluation ED Course 10/07/2018 11:32:04 am patient with acute on chronic shoulder pain suspect impingement syndrome. I discussed options for treatment including injection with steroid. Patient has had minimal relief with injections in the past. Further she has had multiple injections so I would prefer that she will follow-up with orthopedics for them to evaluate and potentially treat with steroids if they wish. I do not believe we need any x-ray images as this pain is nontraumatic. Nothing to suggest infection. We'll treat her outpatient and recommend follow-up with orthopedics Decision to Disposition Date: Oct 07, 2018 Decision to Disposition Time: 11:32 Depart Departure Latest Vital Signs Vital Signs Date Time Temp Pulse Resp B/P (MAP) Pulse Ox O2 Delivery O2 Flow Rate FiO2 10/07/18 11:15 98.4 76 11 118/74 99 Room Air Impression: Primary Impression: Shoulder pain, right Condition: Condition Unchanged Disposition: HOME OR SELF-CARE Referrals: YURY GUAMAN MD Call to make the next available appointment for evaluation of shoulder pain New Scripts Prednisone (PREDNISONE) 20 Mg Tablet 20 MG PO QDAY for 5 Days, #5 TAB 0 Refills Prov: ARACELI SOUTH MD 10/07/18 Hydrocodone Bit/Acetaminophen (HYDROCODON-ACETAMINOPHEN 5-325) 1 Each Tablet 1 EACH PO Q4H for PAIN, #15 TAB 0 Refills Prov: ARACELI SOUTH MD 10/07/18 Patient Instructions: Exercises for Internal and External Shoulder Rotation (ED), Exercises for Shoulder Abduction and Adduction (ED), Exercises for Sh oulder Abduction and Adduction (GEN) Problem Qualifiers Primary Impression: Shoulder pain, right Chronicity: chronic Qualified Codes: M25.511 - Pain in right shoulder; G89.29 - Other chronic pain ARACELI SOUTH MD Oct 07, 2018 11:34
== END 2018-10-07 11:41 | disposition home or self-care (01) ==
LOC: ER 11:23
DX: M25.511 Pain in right shoulder (principal); G89.29 Other chronic pain
CPT/HCPCS: 99282

== ENCOUNTER 2018-10-09 22:06 | Emergency (ER) | payer SELFPAY ==
[2015-02-05 12:58] VITALS: Wt 68.0 kg
[~2018-10-09 22:06] MED LIST changes: +PRED20TA6 PO
--- NOTE | 2018-10-09 22:09 | ER Report ---
History and Physical Time Seen By MD: 22:09 HPI/ROS CHIEF COMPLAINT: Right shoulder pain HISTORY OF PRESENT ILLNESS: 23-year-old female presents ambulatory to the ER complaining of right shoulder pain, which is spread down her right arm. She was seen here 2 days ago. She has a history of impingement syndrome, status post surgery by Dr. Guaman. Patient describes a motion where she told a popping sensation in her shoulder while she was reaching overhead. It's caused increased pain. Patient was prescribed hydrocodone and steroids. She is advised to follow-up with orthopedics. She has not had a chance to since it's been the holiday weekend. He is concerned. Her pain is moved down her arm into the upper arm instead of being in her shoulder. She notes no pain in her neck. She denies any history of neck problems or neck pain. Patient notes no numbness or tingling in her right hand or arm. REVIEW OF SYSTEMS: Respiratory: No cough, no dyspnea. Cardiovascular: No chest pain, no palpitations. Gastrointestinal: No vomiting, no abdominal pain. Musculoskeletal: No back pain. Allergies: Coded Allergies: lactose (Verified Allergy, Intermediate, MIGRAINES, 10/09/18) Uncoded Allergies: HAYFEVER (Allergy, Mild, SINUS CONGESTION, 09/01/17) Home Meds Active Scripts Prednisone (PREDNISONE) 20 Mg Tablet, 20 MG PO QDAY for 5 Days, #5 TAB 0 Refills Prov:ARACELI SOUTH MD 10/07/18 Hydrocodone Bit/Acetaminophen (HYDROCODON-ACETAMINOPHEN 5-325) 1 Each Tablet, 1 EACH PO Q4H for PAIN, #15 TAB 0 Refills Prov:ARACELI SOUTH MD 10/07/18 Reported Medications Multivitamin With Minerals (MULTIPLE VITAMIN) 1 Each Tablet, 1 EACH PO DAILY, TAB 09/01/17 Discontinued Scripts Tramadol Hcl (TRAMADOL HCL) 50 Mg Tablet, 50 MG PO Q6H PRN for PAIN, #6 TAB 0 Refills Prov:ARNAV BENITES DO 06/06/18 Past Medical/Surgical History Impingement syndrome, status post surgery Reviewed Nurses Notes: Yes Old Medical Records Reviewed: Yes Hx Smoking: No Smoking Status: Never Smoker Exposure to Second Hand Smoke?: No Hx Substance Use Disorder: No Hx Alcohol Use: Yes (couple weekly) Constitutional Vital Sign - Last 24 Hours 10/09/18 10/09/18 10/09/18 10/09/18 22:11 22:21 22:30 22:36 Temp 98.9 Pulse 81 71 63 Resp 16 B/P (MAP) 124/82 109/72 (84) Pulse Ox 97 95 95 O2 Delivery Room Air 10/09/18 10/09/18 22:51 23:00 Pulse ??? B/P (MAP) 106/74 (85) Pulse Ox 96 Physical Exam General Appearance: The patient is alert, has no immediate need for airway protection and no current signs of toxicity. Vital signs stable, afebrile, pulse ox normal Eyes: Pupils equal and round no injection. Respiratory: Chest is non tender, lungs are clear to auscultation. Cardiac: regular rate and rhythm Gastrointestinal: Abdomen is soft and non tender, no masses, bowel sounds normal. Musculoskeletal: Neck: Neck is supple and non tender. Extremities have full range of motion and are non tender. Skin: No rashes or lesions. DIFFERENTIAL DIAGNOSIS: After history and physical exam differential diagnosis was considered for cervical radiculopathy, brachial plexopathy, right shoulder pain, impingement syndrome, bursitis, tendinitis Medical Decision Making ED Course/Re-evaluation ED Course Patient was admitted to an examination room. H&P was done. The differential diagnoses was considered. Patient with worsening pain from her previous right shoulder. She does have history of impingement syndrome, status post surgery. There is no inflammation, no joint effusion, there are some symptoms. Referring to her neck. She's medicated for pain with ibuprofen and Dilaudid. Phenergan was given to potentiate the opiate effect pain relief. Patient notes improvement of her pain. She is discharged home and advised to supplement her pain relief with ibuprofen 6 mg 3 times daily as well as prednisone 20 mg per day. She is advised to take all medication with food. She is advised to follow-up with orthopedics, Dr. Guaman as soon as possible. She might need evaluation of her cervical spine with an MRI to rule out other cervical pathology. Decision to Disposition Date: Oct 09, 2018 Decision to Disposition Time: 23:07 Depart Departure Latest Vital Signs Vital Signs Date Time Temp Pulse Resp B/P (MAP) Pulse Ox O2 Delivery O2 Flow Rate FiO2 10/09/18 23:00 106/74 (85) 10/09/18 22:51 ??? 96 10/09/18 22:11 98.9 16 Room Air Impression: Primary Impression: Shoulder pain, right Additional Impression: Right arm pain Condition: Improved Disposition: HOME OR SELF-CARE Referrals: IFRAH GUAMAN MD Patient Instructions: Shoulder Pain (ED) Additional Instructions: Take ibuprofen 200 mg 3-4 tablets 3 times a day with food Take her prednisone with food Follow-up with your orthopedic doctor, Dr. Guaman as soon as possible You may need evaluation of your neck to rule out brachial plexopathy or a pinched nerve in your cervical spine region Problem Qualifiers Primary Impression: Shoulder pain, right Chronicity: acute Qualified Codes: M25.511 - Pain in right shoulder JAE PERDOMO DO Oct 09, 2018 22:08
[2018-10-09] MEDS ORDERED: HYDROmorphone HCL 2 MG TAB PO ONE (22:20)
[2018-10-09] MEDS ORDERED: IBUPROFEN 600 MG TAB PO ONE (22:20)
[2018-10-09] MEDS ORDERED: PROMETHAZINE HCL 25 MG TAB PO ONE (22:20)
[2018-10-09 23:00] VITALS: BP 106/74
== END 2018-10-09 23:15 | disposition home or self-care (01) ==
LOC: ER 22:35
DX: M25.511 Pain in right shoulder (principal); M79.601 Pain in right arm
CPT/HCPCS: 99283; Q0169

== ENCOUNTER 2019-02-23 17:11 | Emergency (ER) | payer SELFPAY ==
[2015-02-05 12:58] VITALS: Wt 68.0 kg
--- NOTE | 2019-02-23 17:22 | ER Report ---
History and Physical Time Seen By MD: 17:22 Hx. of Stated Complaint: STATES SHE HAS BEEN PUKING SINCE 0400 TODAY. TRIED TO EAT CRACKERS WITHOUT SUCCESS. STATE MIGRAINES MOST OF THE DAY. STATES HER FIRST WENT WELL WITHOUT EXCESSIVE NAUSEA. WENT TO [facility] ON TUESDAY FOR REGULAR CHECK UP HPI/ROS 23 y/o at 8 weeks by dates presents to the ED with n/v that has worsened for the past 2 weeks. No abdominal pain, no vaginal bleeding, no dysuria. No fever/chills. Remainder of the 14 system rev: Yes Allergies: Coded Allergies: lactose (Verified Allergy, Intermediate, MIGRAINES, 10/09/18) Uncoded Allergies: HAYFEVER (Allergy, Mild, SINUS CONGESTION, 09/01/17) Home Meds Discontinued Reported Medications Multivitamin With Minerals (MULTIPLE VITAMIN) 1 Each Tablet, 1 EACH PO DAILY, TAB 09/01/17 Discontinued Scripts Prednisone (PREDNISONE) 20 Mg Tablet, 20 MG PO QDAY for 5 Days, #5 TAB 0 Refills Prov:ARACELI SOUTH MD 10/07/18 Hydrocodone Bit/Acetaminophen (HYDROCODON-ACETAMINOPHEN 5-325) 1 Each Tablet, 1 EACH PO Q4H for PAIN, #15 TAB 0 Refills Prov:ARACELI SOUTH MD 10/07/18 Reviewed Nurses Notes: Yes Old Medical Records Reviewed: Yes Hx Smoking: No Smoking Status: Never Smoker Exposure to Second Hand Smoke?: No Hx Substance Use Disorder: No Hx Alcohol Use: No Constitutional Vital Sign - Last 24 Hours 02/23/19 17:15 Temp 98.0 Pulse 78 Resp 18 B/P (MAP) 124/73 Pulse Ox 98 O2 Delivery Room Air Physical Exam General Appearance: The patient is alert, has no immediate need for airway protection and no current signs of toxicity. Eyes: Pupils equal and round no injection. Respiratory: Chest is non tender, lungs are clear to auscultation. Cardiac: regular rate and rhythm Gastrointestinal: Abdomen is soft and non tender, no masses, bowel sounds normal. Skin: No rashes or lesions. : exam deferred Medical Decision Making Data Points Laboratory Hematology Test 02/23/19 17:15 Urine Color Yellow Urine Clarity Slightly-cloudy Urine pH 6.0 pH (4.8-9.5) Urine Specific [place] 1.020 Urine Protein Negative mg/dL (NEGATIVE) Urine Glucose (UA) Negative mg/dL (NEGATIVE) Urine Ketones Trace mg/dL (NEGATIVE) Urine Blood Small (NEGATIVE) Urine Nitrite Negative (NEGATIVE) Urine Bilirubin Negative (NEGATIVE) Urine Urobilinogen Negative mg/dL (0.2-1.9) Urine Leukocyte Esterase Moderate (NEGATIVE) Urine RBC <1 /HPF (0-2/HPF) Urine WBC 7 /HPF (0-5/HPF) Urine Squamous Epithelial Cells Many /LPF (</=FEW) Urine Bacteria Few /HPF (NONE-FEW) Urine Mucus Few /HPF (NONE-FEW) Urine HCG, Qualitative Positive (NEGATIVE) Chemistry Test 02/23/19 17:15 Urine Color Yellow Urine Clarity Slightly-cloudy Urine pH 6.0 pH (4.8-9.5) Urine Specific [place] 1.020 Urine Protein Negative mg/dL (NEGATIVE) Urine Glucose (UA) Negative mg/dL (NEGATIVE) Urine Ketones Trace mg/dL (NEGATIVE) Urine Blood Small (NEGATIVE) Urine Nitrite Negative (NEGATIVE) Urine Bilirubin Negative (NEGATIVE) Urine Urobilinogen Negative mg/dL (0.2-1.9) Urine Leukocyte Esterase Moderate (NEGATIVE) Urine RBC <1 /HPF (0-2/HPF) Urine WBC 7 /HPF (0-5/HPF) Urine Squamous Epithelial Cells Many /LPF (</=FEW) Urine Bacteria Few /HPF (NONE-FEW) Urine Mucus Few /HPF (NONE-FEW) Urine HCG, Qualitative Positive (NEGATIVE) Urinalysis Test 02/23/19 17:15 Urine Color Yellow Urine Clarity Slightly-cloudy Urine pH 6.0 pH (4.8-9.5) Urine Specific [place] 1.020 Urine Protein Negative mg/dL (NEGATIVE) Urine Glucose (UA) Negative mg/dL (NEGATIVE) Urine Ketones Trace mg/dL (NEGATIVE) Urine Blood Small (NEGATIVE) Urine Nitrite Negative (NEGATIVE) Urine Bilirubin Negative (NEGATIVE) Urine Urobilinogen Negative mg/dL (0.2-1.9) Urine Leukocyte Esterase Moderate (NEGATIVE) Urine RBC <1 /HPF (0-2/HPF) Urine WBC 7 /HPF (0-5/HPF) Urine Squamous Epithelial Cells Many /LPF (</=FEW) Urine Bacteria Few /HPF (NONE-FEW) Urine Mucus Few /HPF (NONE-FEW) Urine HCG, Qualitative Positive (NEGATIVE) ED Course/Re-evaluation ED Course No pain or vaginal bleeding. I do not think she needs any imaging at this point. She only complains of n/v. UA shows ketones, but no UTI. Give 1L of NS and D51/2 normal saline. I counseled her to eat rashaun and drink lemon fiz water. Will also give RX for Zofran. Decision to Disposition Date: Feb 23, 2019 Decision to Disposition Time: 18:19 Depart Departure Latest Vital Signs Vital Signs Date Time Temp Pulse Resp B/P (MAP) Pulse Ox O2 Delivery O2 Flow Rate FiO2 02/23/19 17:15 98.0 78 18 124/73 98 Room Air Impression: Primary Impression: Nausea and vomiting during Condition: Improved Disposition: HOME OR SELF-CARE New Scripts Ondansetron Hcl (ZOFRAN) 4 Mg Tablet 4 MG PO Q6-8H for 14 Days, #20 TAB Prov: ADRIANA GAYTAN MD 02/23/19 Patient Instructions: Nausea and Vomiting in (ED) ADRIANA GAYTAN MD Feb 23, 2019 17:22
[2019-02-23] MEDS ORDERED: NS(*) 0.9% 1000 ML BAG 1,000 ML IV ONE (17:32)
[2019-02-23] MEDS ORDERED: ONDANSETRON 4 MG/2 ML VIAL IVP ONE (17:40)
[2019-02-23 18:00] VITALS: BP 98/62
[2019-02-23] MEDS ORDERED: D5 1/2 NS(*) 1000 ML BAG 1,000 ML IV ONE (18:00)
[2019-02-23] MEDS ORDERED: ONDA4TAB97 PO (18:22)
== END 2019-02-23 18:51 | disposition home or self-care (01) ==
LOC: ER 17:24
DX: O21.0 Mild hyperemesis gravidarum (principal); Z3A.08 8 weeks gestation of pregnancy
CPT/HCPCS: 81001; 81025; 96365; 96375; 99284; J2405; J7030